=== PATIENT | female | born 1960 | race Caucasian/White ===

== ENCOUNTER 2018-06-16 16:57 | Emergency (ER) | payer OTHER ==
[~2018-06-16] VITALS: Ht 162.6 cm; Wt 72.6 kg
[~2018-06-16 16:57] MED LIST: EXCEDRIN ASA F1 EAC1; SERTRALINE HCL100 MG PO; ULTRAM 50MG TAB50 MG PO; VALIUM5 MG PO; ZOFRAN4 MG PO
[2018-06-16 17:48] LABS: URINE BILIRUBIN NEGATIVE (Negative); URINE BLOOD NEGATIVE (Negative); URINE CLARITY CLEAR; URINE COLOR YELLOW; URINE GLUCOSE-RANDOM* NEGATIVE (Negative); URINE KETONES NEGATIVE (Negative); URINE LEUKOCYTES-REFLEX NEGATIVE (Negative); URINE NITRITE-REFLEX NEGATIVE (Negative); URINE PROTEIN (DIPSTICK) TRACE (Negative)
[2018-06-16 17:51] LABS: ABSOLUTE NEUTROPHILS 6.6 thou/uL (1.4-8.2); BASOPHILS 0.2 % (0.0-2.0); EOSINOPHILS 0.1 % (0.0-3.0); HEMATOCRIT 42.6 % (37.0-47.0); HEMOGLOBIN 14.6 gm/dL (12.0-15.0); LYMPHOCYTES 4.1 % (24.0-44.0); MCH 28.8 pg (26.0-34.0); MCHC 34.3 g/dL (28.0-37.0); MCV 84.1 fL (80.0-100.0); MONOCYTES 3.3 % (1.0-8.0); PLATELET COUNT 243 thou/uL (150-400); POLYS 92.3 % (36.0-66.0); RBC 5.07 mil/uL (4.20-5.00); WBC 7.1 thou/uL (4.0-11.0)
[2018-06-16 17:54] LABS: CALCIUM 9.7 mg/dL (8.5-10.1); CREATININE 0.8 mg/dL (0.6-1.0); POTASSIUM 3.9 mmol/L (3.5-5.1)
[2018-06-16 18:01] LABS: ALBUMIN 4.1 g/dL (3.4-5.0); DIRECT BILIRUBIN 0.1 mg/dL (<0.1-0.3); TOTAL BILIRUBIN 0.9 mg/dL (<0.1-1.0); TOTAL PROTEIN 7.9 g/dL (6.4-8.2)
[2018-06-16] MEDS ORDERED: ZOFRAN ODT4 MG PO (18:05)
[2018-06-16 19:10] VITALS: BP 113/62
== END 2018-06-16 19:14 | disposition home or self-care (01) ==
LOC: ER 16:57
PROVIDERS: Emergency Medicine
DX: K52.9 Noninfective gastroenteritis and colitis, unspecified (principal); G43.909 Migraine, unspecified, not intractable, without status migrainosus; Z88.5 Allergy status to narcotic agent; Z88.1 Allergy status to other antibiotic agents; Z86.73 Personal history of transient ischemic attack (TIA), and cerebral infarction without residual deficits; Z90.89 Acquired absence of other organs